=== PATIENT | female | born 1950 | race Caucasian/White ===

== ENCOUNTER 2021-01-05 06:58 | Day surgery (SDC) | payer OTHER, SELFPAY ==
[~2021-01-05] VITALS: Ht 154.9 cm; Wt 56.2 kg
[~2021-01-05 06:58] MED LIST: FLUT1DIS IH; LIP20 PO; MOME17SP NS; RISE5TAB PO
[2021-01-05] MEDS ORDERED: EPINEPHrine 1 MG/ML AMP IM ONE (09:15)
[2021-01-05] MEDS ORDERED: DEXAMETHASONE SOD PHOSPHATE 4 MG/ML VIAL IVP ONE (09:15)
[2021-01-05] MEDS ORDERED: fentaNYL CITRATE/PF 100 MCG/2 ML AMP IVP ONE (09:15)
[2021-01-05] MEDS ORDERED: SEVOFLURANE 15 MIN GAS INH ONE (09:15)
[2021-01-05] MEDS ORDERED: PROPOFOL 200MG/ 20ML VIAL (DIPRIVAN) IV ONE (09:15)
[2021-01-05] MEDS ORDERED: BUPIVACAINE /EPINEPHRINE/PF 0.25% 30 ML VIAL INJ ONE (09:15)
[2021-01-05] MEDS ORDERED: ONDANSETRON HCL 4 MG/2 ML VIAL IVP PRN ×2 (10:15)
[2021-01-05] MEDS ORDERED: HYDROcodone/ACETAMIN 5-325 MG TAB (NORCO/ VICODIN) PO PRN (10:15)
[2021-01-05] MEDS ORDERED: OXYCODONE/ACETAMINOPHEN 5-325 TABLET PO PRN ×2 (10:15)
[2021-01-05] MEDS ORDERED: HYDROmorphone 1 INJ. 1 MG/ML CARTRIDGE IVP PRN (10:15)
[2021-01-05 11:43] VITALS: BP_SYST 122
== END 2021-01-05 12:05 | disposition home or self-care (01) ==
LOC: SMU 06:58 → SDS 06:58
PROVIDERS: ATTEND Specialist
DX: N95.0 Postmenopausal bleeding (principal); R93.89 Abnormal findings on diagnostic imaging of other specified body structures; N85.00 Endometrial hyperplasia, unspecified; K21.9 Gastro-esophageal reflux disease without esophagitis; J45.909 Unspecified asthma, uncomplicated; E78.00 Pure hypercholesterolemia, unspecified; Z79.899 Other long term (current) drug therapy; Z20.828 Contact with and (suspected) exposure to other viral communicable diseases
CPT/HCPCS: 58558; 88305; 88341; 88342; J0171; J1100; J2704; J3010; J3490; J7120; U0003